=== PATIENT | male | born 1970 | race Caucasian/White ===

== ENCOUNTER 2023-06-29 13:16 | Outpatient (RCR) | payer BC, SELFPAY | END 2023-06-29 23:59 | disposition home or self-care (01) | LOC: RPT 13:16 | PROVIDERS: ATTENDING PHYSICIAN Physician Assistant Medical; FAMILY PHYSICIAN Internal Medicine | DX: S83.231D Complex tear of medial meniscus, current injury, right knee, subsequent encounter (principal); M22.41 Chondromalacia patellae, right knee; Z98.890 Other specified postprocedural states; M25.561 Pain in right knee; Z73.6 Limitation of activities due to disability | CPT/HCPCS: 97110; 97112 ==

== ENCOUNTER 2023-08-27 13:36 | Outpatient (RCR) | payer BC, SELFPAY | END 2023-08-27 23:59 | disposition home or self-care (01) | LOC: RPT 13:36 | PROVIDERS: ATTENDING PHYSICIAN Specialist; FAMILY PHYSICIAN Internal Medicine | DX: M25.561 Pain in right knee (principal); Z73.6 Limitation of activities due to disability; Z98.890 Other specified postprocedural states | CPT/HCPCS: 97110; 97112; 97162; 97530 ==

== ENCOUNTER 2023-09-10 12:03 | Outpatient (RCR) | payer BC, SELFPAY | END 2023-09-18 07:36 | disposition home or self-care (01) | LOC: RPT 12:03 | PROVIDERS: ATTENDING PHYSICIAN Specialist; FAMILY PHYSICIAN Internal Medicine | DX: M25.561 Pain in right knee (principal); Z98.890 Other specified postprocedural states; Z73.6 Limitation of activities due to disability | CPT/HCPCS: 97110; 97112; 97530 ==